=== PATIENT | male | born 1985 | race Two or more races ===

== ENCOUNTER 2021-04-30 14:22 | Emergency (ER) | payer SELFPAY ==
[~2021-04-30] VITALS: Ht 170.2 cm; Wt 90.0 kg
[2021-04-30 15:41] LABS: FECAL OB PT POSITIVE (NEG)
[2021-04-30 15:53] LABS: BASO # 0.1 x10^3/uL (0.0-0.2); BASO % 1 % (0-3); EOS # 0.1 x10^3/uL (0.0-0.7); EOS % 1 % (0-3); HEMATOCRIT 49.6 % (39.0-53.0); HEMOGLOBIN 17.5 g/dL (13.0-17.5); LYMPH # 1.7 x10^3/uL (1.0-4.8); LYMPH % 23 % (24-48); MEAN CORPUSCULAR HEMOGLOBIN 32 pg (25-35); MEAN CORPUSCULAR HGB CONC 35 g/dL (31-37); MEAN CORPUSCULAR VOLUME 91 fL (79-100); MONO # 0.6 x10^3/uL (0.0-1.1); MONO % 8 % (0-9); NEUT # 5.1 x10^3/uL (1.8-7.7); NEUT % 67 % (31-73); PLATELET COUNT 290 x10^3/uL (140-400); RED BLOOD COUNT 5.45 x10^6/uL (4.30-5.70); RED CELL DISTRIBUTION WIDTH 12.9 % (11.5-14.5); WHITE BLOOD COUNT 7.6 x10^3/uL (4.0-11.0)
[2021-04-30] MEDS ORDERED: IOHEXOL 300 MG/ML 100ML VIAL. IV ONE (16:00)
[2021-04-30] MEDS ORDERED: CONTRAST GIVEN. MC PRN (16:15)
--- NOTE | 2021-04-30 16:25 | RAD ---
EXAM: Abdomen and pelvis CT with intravenous contrast. HISTORY: Rectal bleeding. TECHNIQUE: Computed tomographic images of the abdomen and pelvis were obtained following the administ ration of intravenous contrast. Multiplanar reformatting was performed. *One or more of the following individualized dose reduction techniques were utilized for this examina tion: 1. Automated exposure control. 2. Adjustment of the mA and/or kV according to patient size. 3. Use of iterative reconstruction technique. COMPARISON: None. FINDINGS: Evaluation of the lower thorax demonstrates posterior dependent and basilar atelectasis. Th ere are a few small bilateral pulmonary nodules. The largest of these measure 3 mm and 4 mm within th e right middle lobe, 4 mm within the right lower lobe and 3 mm and 4 mm within the left lower lobe. T here is also an 8 mm nodule at the right lung base which may contain a tiny focus of calcification. No hepatic lesion is seen. The gallbladder, pancreas, spleen, adrenal glands and kidneys are unremark able. The appendix is absent. There are few colonic diverticula. There is no convincing bowel wall th ickening, part from segmental thickening due to peristalsis or under distention. The urinary bladder is nearly empty. The aorta is normal in caliber. There is no lymphadenopathy. There is no acute or estes spicious osseous lesion. There is grade 1 anterolisthesis with bilateral pars defects at L5-S1. IMPRESSION: 1. Multiple small bilateral mid and lower lung pulmonary nodules. The largest nodule measures 8 mm wi thin the right lung base and may contain a tiny focus of calcification. These may be infectious or in flammatory. The possibility of neoplasm is not excluded. Short-term follow-up with a chest CT in 3 mo nths is recommended. 2. Few colonic diverticula. Electronically signed by: Shala Shirley MD (04/30/2021 4:23 PM) [id number]
[2021-04-30 16:29] LABS: CALCIUM 8.1 mg/dL (8.5-10.1); CREATININE 0.9 mg/dL (0.7-1.3); POTASSIUM 3.7 mmol/L (3.5-5.1)
[2021-04-30 16:35] LABS: ALBUMIN 3.8 g/dL (3.4-5.0); ALBUMIN/GLOBULIN RATIO 0.9 (1.0-1.7); TOTAL BILIRUBIN 0.5 mg/dL (0.2-1.0); TOTAL PROTEIN 7.9 g/dL (6.4-8.2)
[2021-04-30] MEDS ORDERED: HYDR30CR61 TP (17:47)
[2021-04-30] MEDS ORDERED: DOCU100C28 PO (17:47)
--- NOTE | 2021-04-30 17:47 | PHYS DOC ---
Past Medical History Past Surgical History: No Surgical History Smoking Status: Current Every Day Smoker Alcohol Use: None General Adult EDM: Chief Complaint: HEMORRHOIDS HPI: HPI: Patient is a 35 year old male patient current smoker presented to the ED today complaining of hemorrhoids. He states then on last week. He states today he had a bowel movement and had bright red blood in the stool. Patient states he has been using Tucks as well as sitz bath's with no relief to his hemorrhoids. Denies any abdominal pain, nausea, vomiting, denies being on any anticoagulants. Patient can understand and speak some Maltese, emanuel[place] is interpreting for us for [place] Review of Systems: Review of Systems: Constitutional: Denies fever or chills. [] Eyes: Denies change in visual acuity. [] HENT: Denies nasal congestion or sore throat. [] Respiratory: Denies cough or shortness of breath. [] Cardiovascular: Denies chest pain or edema. [] GI: Reports hemorrhoids. Reports rectal bleeding. Denies abdominal pain, nausea, vomiting, bloody stools or diarrhea. [] : Denies dysuria. [] Musculoskeletal: Denies back pain or joint pain. [] Integument: Denies rash. [] Neurologic: Denies headache, focal weakness or sensory changes. [] Psychiatric: Denies depression or anxiety. [] Heart Score: C/O Chest Pain: N/A Risk Factors: Risk Factors: DM, Current or recent (<one month) smoker, HTN, HLP, family history of CAD, obesity. Risk Scores: Score 0 - 3: 2.5% MACE over next 6 weeks - Discharge Home Score 4 - 6: 20.3% MACE over next 6 weeks - Admit for Clinical Observation Score 7 - 10: 72.7% MACE over next 6 weeks - Early Invasive Strategies Current Medications: Current Medications Medications (Trade) Dose Ordered Sig/Delroy Start Time Stop Time Status Last Admin Dose Admin Info (CONTRAST GIVEN -- Rx MONITORING) 1 each PRN DAILY PRN 04/30/21 16:15 05/02/21 16:14 Iohexol (Omnipaque 300 Mg/ml) 75 ml 1X ONCE 04/30/21 16:00 04/30/21 16:04 DC 04/30/21 16:08 75 ML Allergies: Allergies: Allergies Coded Allergies Type Severity Reaction Last Updated Verified No Known Drug Allergies 1/10/22 No Physical Exam: PE: Constitutional: Well developed, well nourished, no acute distress, non-toxic appearance. [] HENT: Normocephalic, atraumatic, bilateral external ears normal, oropharynx moist, no oral exudates, nose normal. [] Eyes: PERRLA, EOMI, conjunctiva normal, no discharge. [] Neck: Normal range of motion, no tenderness, supple, no stridor. [] Cardiovascular:Heart rate regular rhythm, no murmur [] Lungs & Thorax: Bilateral breath sounds clear to auscultation [] Abdomen: Bowel sounds normal, soft, no tenderness, no masses, no pulsatile masses. [] Rectal exam with Keyur RN as a sample maker original External rectal area with a small nonthrombosed hemorrhoid the size of a peanut, bright red blood noted on the external part of the rectum. No internal hemorrhoids. Positive Hemoccult Skin: Warm, dry, no erythema, no rash. [] Back: No tenderness, no CVA tenderness. [] Extremities: No tenderness, no cyanosis, no clubbing, ROM intact, no edema. [] Neurologic: Alert and oriented X 3, normal motor function, normal sensory function, no focal deficits noted. [] Psychologic: Affect normal, judgement normal, mood normal. [] Current Patient Data: Labs: Laboratory Tests Test 04/30/21 15:08 04/30/21 15:45 Stool Occult Blood Positive (NEG) White Blood Count 7.6 x10^3/uL (4.0-11.0) Red Blood Count 5.45 x10^6/uL (4.30-5.70) Hemoglobin 17.5 g/dL (13.0-17.5) Hematocrit 49.6 % (39.0-53.0) Mean Corpuscular Volume 91 fL (79-100) Mean Corpuscular Hemoglobin 32 pg (25-35) Mean Corpuscular Hemoglobin Concent 35 g/dL (31-37) Red Cell Distribution Width 12.9 % (11.5-14.5) Platelet Count 290 x10^3/uL (140-400) Neutrophils (%) (Auto) 67 % (31-73) Lymphocytes (%) (Auto) 23 % (24-48) L Monocytes (%) (Auto) 8 % (0-9) Eosinophils (%) (Auto) 1 % (0-3) Basophils (%) (Auto) 1 % (0-3) Neutrophils # (Auto) 5.1 x10^3/uL (1.8-7.7) Lymphocytes # (Auto) 1.7 x10^3/uL (1.0-4.8) Monocytes # (Auto) 0.6 x10^3/uL (0.0-1.1) Eosinophils # (Auto) 0.1 x10^3/uL (0.0-0.7) Basophils # (Auto) 0.1 x10^3/uL (0.0-0.2) Sodium Level 140 mmol/L (136-145) Potassium Level 3.7 mmol/L (3.5-5.1) Chloride Level 104 mmol/L (98-107) Carbon Dioxide Level 28 mmol/L (21-32) Anion Gap 8 (6-14) Blood Urea Nitrogen 15 mg/dL (8-26) Creatinine 0.9 mg/dL (0.7-1.3) Estimated GFR (Cockcroft-Gault) 96.0 BUN/Creatinine Ratio 17 (6-20) Glucose Level 128 mg/dL (70-99) H Calcium Level 8.1 mg/dL (8.5-10.1) L Total Bilirubin 0.5 mg/dL (0.2-1.0) Aspartate Amino Transferase (AST) 66 U/L (15-37) H Alanine Aminotransferase (ALT) 181 U/L (16-63) H Alkaline Phosphatase 95 U/L (46-116) Total Protein 7.9 g/dL (6.4-8.2) Albumin 3.8 g/dL (3.4-5.0) Albumin/Globulin Ratio 0.9 (1.0-1.7) L Laboratory Tests 04/30/21 15:45 Laboratory Tests 04/30/21 15:45 Vital Signs: Vital Signs Date Time Temp Pulse Resp B/P (MAP) Pulse Ox O2 Delivery O2 Flow Rate FiO2 04/30/21 15:10 98.5 75 15 142/80 (100) 97 Room Air 98.5 EKG: EKG: [] Radiology/Procedures: Radiology/Procedures: []PROCEDURE: CT ABD PELV W/ IV CONTRST ONLY EXAM: Abdomen and pelvis CT with intravenous contrast. HISTORY: Rectal bleeding. TECHNIQUE: Computed tomographic images of the abdomen and pelvis were obtained following the administration of intravenous contrast. Multiplanar reformatting was performed. *One or more of the following individualized dose reduction techniques were utilized for this examination: 1. Automated exposure control. 2. Adjustment of the mA and/or kV according to patient size. 3. Use of iterative reconstruction technique. COMPARISON: None. FINDINGS: Evaluation of the lower thorax demonstrates posterior dependent and basilar atelectasis. There are a few small bilateral pulmonary nodules. The largest of these measure 3 mm and 4 mm within the right middle lobe, 4 mm within the right lower lobe and 3 mm and 4 mm within the left lower lobe. There is also an 8 mm nodule at the right lung base which may contain a tiny focus of calcification. No hepatic lesion is seen. The gallbladder, pancreas, spleen, adrenal glands and kidneys are unremarkable. The appendix is absent. There are few colonic diverticula. There is no convincing bowel wall thickening, part from segmental thickening due to peristalsis or under distention. The urinary bladder is nearly empty. The aorta is normal in caliber. There is no lymphadenopathy. There is no acute or suspicious osseous lesion. There is grade 1 anterolisthesis with b ilateral pars defects at L5-S1. IMPRESSION: 1. Multiple small bilateral mid and lower lung pulmonary nodules. The largest nodule measures 8 mm within the right lung base and may contain a tiny focus of calcification. These may be infectious or inflammatory. The possibility of neoplasm is not excluded. Short-term follow-up with a chest CT in 3 months is recommended. 2. Few colonic diverticula. Electronically signed by: Shala Shirley MD (04/30/2021 4:23 PM) [id number] DICTATED and SIGNED BY: SHALA SHIRLEY MD DATE: 04/30/21 [id number] 0 Course & Med Decision Making: Course & Med Decision Making Pertinent Labs and Imaging studies reviewed. (See chart for details) This is a 35-year-old male patient presenting to the ED today with complaints of hemorrhoids that began on and today he had rectal bleeding during a bowel movement CBC with a normal WBC, normal hemoglobin and hematocrit, Hemoccult positive CT of the abdomen and pelvis noted multiple small bilateral mid and lower lung pulmonary nodules. The largest nodule measures 8 mm within the right lung base and may contain a tiny focus of calcification. These may be infectious or inflammatory. The possibility of neoplasm is not excluded. Short-term follow-up with a chest CT in 3 months is recommended. Few colonic diverticula. Above CT results were discussed with patient and fianc. I emphasized the importance of following up with the PCP for repeat CT of the chest to rule out any cancer. Patient was discharged with and anusol cream as well as Docusate. Patient was instructed to consider smoking cessation. He was provided GI as well as general surgeon for follow-up Vangie Disclaimer: Dragadin Disclaimer: This electronic medical record was generated, in whole or in part, using a voice recognition dictation system. Departure Departure Impression: Primary Impression: Hemorrhoids Qualified Codes: K64.9 - Unspecified hemorrhoids Additional Impressions: Diverticulosis Lung nodules Smoking addiction Disposition: HOME / SELF CARE / HOMELESS Condition: STABLE Referrals: NO PCP (PCP) Please follow-up with your primary care doctor for lung nodule showing up on your ct APRIL LINDA MD Follow-up for hemorrhoids Patient Instructions: Diverticulosis, Hemorrhoids, Smoking Cessation Additional Instructions: You were evaluated in the emergency room, please consider smoking cessation. Your CT of the abdomen and pelvis was noted for lung nodules, this need to be followed up with a primary care doctor and a repeat CT done in 3 months to ensure its not cancer. Continue using the medicines you are using right now including Tucks for your hemorrhoids. Sitz bath's. Also use the new medicines we have prescribed Scripts Hydrocortisone (ANUSOL-HC) 30 Gm Cream..g. 1 BARBARA TP TID for 10 Days, #30 GM 0 Refills Prov: FRAN CARLOS APRN 04/30/21 Docusate Sodium (DOCUSATE SODIUM) 100 Mg Capsule 1 CAP PO BID for constipation, #30 CAP 0 Refills Prov: FRAN CARLOS APRN 04/30/21 FRAN CARLOS APRN Apr 30, 2021 17:47
[2021-04-30 18:01] VITALS: BP 120/70
== END 2021-04-30 18:03 | disposition home or self-care (01) ==
LOC: ER 14:22
DX: K64.9 Unspecified hemorrhoids (principal); K57.90 Diverticulosis of intestine, part unspecified, without perforation or abscess without bleeding; R91.1 Solitary pulmonary nodule; F17.200 Nicotine dependence, unspecified, uncomplicated
CPT/HCPCS: 36415; 74177; 80053; 82274; 85025; 99285; Q9967